=== PATIENT | female | born 2000 | race Caucasian/White ===

== ENCOUNTER 2021-12-20 01:39 | Emergency (ER) | payer OTHER ==
[~2021-12-20] VITALS: Ht 175 cm; Wt 53.0 kg
[2021-12-20 02:29] LABS: BILIRUBIN,URINE NEGATIVE (NEGATIVE); CLARITY,URINE CLEAR; COLOR,URINE YELLOW; GLUCOSE, URINE (UA) NEGATIVE (NEGATIVE); KETONES,URINE NEGATIVE (NEGATIVE); LEUKOCYTE ESTERASE ,URINE NEGATIVE (NEGATIVE); NITRITE,URINE NEGATIVE (NEGATIVE); PROTEIN,URINE NEGATIVE (NEGATIVE)
--- NOTE | 2021-12-20 02:30 | ED GU-Female ---
General Chief Complaint: Back Problems Stated Complaint: POSS KIDNEY INFECTION,FEVER Source: patient History of Present Illness Date Seen by Provider: Dec 20, 2021 Time Seen by Provider: 02:15 Initial Comments PT ARRIVES VIA POV--PT IS FROM [place], HERE VISITING HER BOYFRIEND C/O RIGHT > LEFT FLANK PAIN X 2 WEEKS, GETTING WORSE BEGAN HAVING SUBJECTIVE FEVER TONIGHT, AND TOOK 2 TYLENOL 1 HOUR AGO C/O NAUSEA, NO VOMITING PT WITH PERMANENT SUPRAPUBIC CATHETER SINCE SHE WAS A SMALL CHILD--HAD SURGERY FOR URACHAL CYST WITH INFECTION, WITH COMPLICATIONS AND THEN HAD A SMALL BOWEL RESECTION, APPENDECTOMY, PART OF BLADDER REMOVED AND PERMANENT SUPRAPUBIC CATHETER PLACED WELL PERMANENT FEEDING TUBE IN PLACE HAS FREQUENT UTI'S AND HAS HAD SEPSIS AT LEAST 6 TIMES DUE TO UTI'S PT HAS NOT SOUGHT CARE UNTIL TONIGHT LMP 1 MONTH AGO, ON OCP'S PT HAS MULTIPLE SPECIALISTS ALL AT [facility] IN [place] PT HAS HAD COVID-19 VACCINE X 2, NO BOOSTER WANTING PAIN MEDICATION AND NAUSEA MEDICATION ON ARRIVAL PER MED RECONCILIATION, PT IS ON A MULTITUDE OF MEDICATIONS, INCLUDING OXYCODONE, XANAX, AND A MULTITUDE OF MENTAL HEALTH MEDICATIONS. PT ALSO STATES SHE HAS A MEDICAL MARIJUANA CARD. PRESCRIPTIONS ARE FROM A MULTITUDE OF DIFFERENT PROVIDERS. PT WAS PRESCRIBED BACTRIM X 7 DAYS ON 11/20/21 AND MACROBID X 4 DAYS ON 11/27/21, AND FLAGYL 500 MG X 7 DAYS ON 12/13/21 PT FILLED RX FOR OXYCODONE #45 ON 12/07/21, AND FOR XANAX #60 ON 12/04/21 Allergies and Home Medications Allergies Coded Allergies: Iodinated Contrast Media (Verified Allergy, Unknown, 12/20/21) "THROAT SWELLING" NSAIDS (Non-Steroidal Anti-Inflamma (Verified Adverse Reaction, Unknown, 12/20/21) "ULCERS" Patient Home Medication List Home Medication List Reviewed: Yes Review of Systems Review of Systems Constitutional: see HPI, fever Respiratory: no symptoms reported Cardiovascular: no symptoms reported Gastrointestinal: see HPI, nausea; No vomiting; other (PERMANENT FEEDING TUBE IN PLACE, BUT DOES TAKE "BLAND FOOD" BY MOUTH) Genitourinary: see HPI, flank pain Musculoskeletal: see HPI, back pain Skin: no symptoms reported Psychiatric/Neurological: No Symptoms Reported Past Suiofdk-Yuanpl-Fycgmt Hx Patient Social History Tobacco Use?: No Substance use?: Yes Substance type: Marijuana Substance frequency: Daily Alcohol Use?: No Past Medical History Surgeries: Yes Abdominal, Appendectomy, Bladder Surgery, Bowel Surgery Respiratory: No Cardiac: No Neurological: No Genitourinary: Yes (URACHAL CYST; PARTIAL BLADDER REMOVAL; PERMANENT SUPRAPUBIC CATH) UTI-Chronic Gastrointestinal: Yes (BOWEL OBSTRUCTION/VOLVULUS WITH RESECTION + APPY) Obstructive Bowel Musculoskeletal: No Endocrine: No HEENT: No Cancer: No Psychosocial: No Integumentary: No Blood Disorders: No Family Medical History MULTIPLE EPISODES OF SEPSIS DUE TO UTI'S PAST SURGICAL HISTORY: -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 -PORT RIGHT CHEST Physical Exam Vital Signs Vital Signs - First Documented Capillary Refill : Height, Weight, BMI Height: '" Weight: lbs. oz. kg; BMI Method: General Appearance: WD/WN, no apparent distress, other (FULL HEAVY MAKEUP, GR EEN HAIR DYE; WALKS AND MOVES WITHOUT DIFFICULTY. DOES NOT APPEAR TO BE IN ANY DISCOMFORT OR DISTRESS. ) Neck: normal inspection Cardiovascular: regular rate, rhythm, no murmur Respiratory: normal breath sounds Gastrointestinal: soft, tenderness (RIGHT > LEFT FLANK), other (SUPRAPUBIC CATHETER AND G-TUBE IN PLACE, NO SIGNS OF INFECTION OR LEAKING. ) Back: CVA tenderness (R), CVA tenderness (L) Extremities: normal inspection Neurologic/Psychiatric: no motor/sensory deficits, alert, normal mood/affect Skin: normal color, warm/dry Focused Exam Lactate Level 12/20/21 02:45: Lactic Acid Level 3.49*H Lactic Acid Level Laboratory Tests Test 12/20/21 02:45 Lactic Acid Level 3.49 MMOL/L (0.50-2.00) *H Progress/Results/Core Measures Suspected Sepsis SIRS Temperature: Pulse: Respiratory Rate: Laboratory Tests 12/20/21 02:45: White Blood Count 10.3 Blood Pressure / Mean: 12/20/21 02:45: Lactic Acid Level 3.49*H Laboratory Tests 12/20/21 02:45: Creatinine 0.74, Platelet Count 282, Total Bilirubin 0.1 Results/Orders Lab Results Laboratory Tests Test 12/20/21 02:23 12/20/21 02:45 12/20/21 03:14 Range/Units Urine Color YELLOW Urine Clarity CLEAR Urine pH 6.0 5-9 Urine Specific [place] 1.015 L 1.016-1.022 Urine Protein NEGATIVE NEGATIVE Urine Glucose (UA) NEGATIVE NEGATIVE Urine Ketones NEGATIVE NEGATIVE Urine Nitrite NEGATIVE NEGATIVE Urine Bilirubin NEGATIVE NEGATIVE Urine Urobilinogen 0.2 < = 1.0 MG/DL Urine Leukocyte Esterase NEGATIVE NEGATIVE Urine RBC (Auto) 1+ H NEGATIVE Urine RBC 2-5 H /HPF Urine WBC NONE /HPF Urine Squamous Epithelial Cells 0-2 /HPF Urine Crystals NONE /LPF Urine Bacteria NEGATIVE /HPF Urine Casts NONE /LPF Urine Mucus NEGATIVE /LPF Urine Culture Indicated CULTURE PENDING White Blood Count 10.3 4.3-11.0 10^3/uL Red Blood Count 4.37 3.80-5.11 10^6/uL Hemoglobin 12.7 11.5-16.0 g/dL Hematocrit 39 35-52 % Mean Corpuscular Volume 89 80-99 fL Mean Corpuscular Hemoglobin 29 25-34 pg Mean Corpuscular Hemoglobin Concent 33 32-36 g/dL Red Cell Distribution Width 13.6 10.0-14.5 % Platelet Count 282 130-400 10^3/uL Mean Platelet Volume 9.4 9.0-12.2 fL Immature Granulocyte % (Auto) 1 % Neutrophils (%) (Auto) 43 42-75 % Lymphocytes (%) (Auto) 46 H 12-44 % Monocytes (%) (Auto) 5 0-12 % Eosinophils (%) (Auto) 4 0-10 % Basophils (%) (Auto) 1 0-10 % Neutrophils # (Auto) 4.5 1.8-7.8 10^3/uL Lymphocytes # (Auto) 4.7 H 1.0-4.0 10^3/uL Monocytes # (Auto) 0.5 0.0-1.0 10^3/uL Eosinophils # (Auto) 0.4 H 0.0-0.3 10^3/uL Basophils # (Auto) 0.1 0.0-0.1 10^3/uL Immature Granulocyte # (Auto) 0.1 0.0-0.1 10^3/uL Erythrocyte Sedimentation Rate 10 0-20 MM/HR Sodium Level 137 135-145 MMOL/L Potassium Level 3.3 L 3.6-5.0 MMOL/L Chloride Level 107 98-107 MMOL/L Carbon Dioxide Level 17 L 21-32 MMOL/L Anion Gap 13 5-14 MMOL/L Blood Urea Nitrogen 15 7-18 MG/DL Creatinine 0.74 0.60-1.30 MG/DL Estimat Glomerular Filtration Rate 117 BUN/Creatinine Ratio 20 Glucose Level 193 H 70-105 MG/DL Lactic Acid Level 3.49 *H 0.50-2.00 MMOL/L Calcium Level 8.9 8.5-10.1 MG/DL Corrected Calcium 9.1 8.5-10.1 MG/DL Total Bilirubin 0.1 0.1-1.0 MG/DL Aspartate Amino Transf (AST/SGOT) 14 5-34 U/L Alanine Aminotransferase (ALT/SGPT) 10 0-55 U/L Alkaline Phosphatase 27 L 40-136 U/L C-Reactive Protein High Sensitivity 0.15 0.00-0.50 MG/DL Total Protein 6.6 6.4-8.2 GM/DL Albumin 3.7 3.2-4.5 GM/DL Procalcitonin 0.01 <0.10 NG/ML Serum Test, Qualitative NEGATIVE NEGATIVE Urine Opiates Screen NEGATIVE NEGATIVE Urine Oxycodone Screen NEGATIVE NEGATIVE Urine Methadone Screen NEGATIVE NEGATIVE Urine Propoxyphene Screen NEGATIVE NEGATIVE Urine Barbiturates Screen NEGATIVE NEGATIVE Ur Tricyclic Antidepressants Screen NEGATIVE NEGATIVE Urine Phencyclidine Screen NEGATIVE NEGATIVE Urine Amphetamines Screen NEGATIVE NEGATIVE Urine Methamphetamines Screen NEGATIVE NEGATIVE Urine Benzodiazepines Screen POSITIVE H NEGATIVE Urine Cocaine Screen NEGATIVE NEGATIVE Urine Cannabinoids Screen POSITIVE H NEGATIVE My Orders Orders - ROM KIM DO Ed Iv/Invasive Line Start (12/20/21 02:16) Cbc With Automated Diff (12/20/21 02:16) Comprehensive Metabolic Panel (12/20/21 02:16) Hs C Reactive Protein (12/20/21 02:16) Hcg,Qualitative Serum (12/20/21 02:16) Lactic Acid Analyzer (12/20/21 02:16) Procalcitonin (Pct) (12/20/21 02:16) Ua Culture If Indicated (12/20/21 02:16) Erythrocyte Sedimentation Rate (12/20/21 02:16) Ed Iv/Invasive Line Start (12/20/21 02:16) Blood Culture (12/20/21 02:16) Urine Culture (12/20/21 02:16) Ed Iv/Invasive Line Start (12/20/21 02:16) Vital Signs Adult Sepsis Patie Q15M (12/20/21 02:16) Remove Rings In Anticipation O (12/20/21 02:16) Ct Abd/Pelvis Wo(Kidney Stone) (12/20/21 02:23) Chest 1 View, Ap/Pa Only (12/20/21 02:46) Ondansetron Injection (Zofran Injectio (12/20/21 03:00) Drug Screen Stat (Urine) (12/20/21 03:01) Ed Iv/Invasive Line Start (12/20/21 03:20) Ns Iv 1000 Ml (Sodium Chloride 0.9%) (12/20/21 03:30) Ed Iv/Invasive Line Start (12/20/21 04:13) Ns Iv 1000 Ml (Sodium Chloride 0.9%) (12/20/21 04:15) Medications Given in ED Current Medications Medications Dose Ordered Sig/Cheikh Route Start Time Stop Time Status Last Admin Dose Admin Ondansetron HCl 4 mg ONCE ONCE IVP 12/20/21 03:00 12/20/21 03:01 DC 12/20/21 02:57 4 MG Vital Signs/I&O 12/20/21 12/20/21 02:03 02:03 Temp 37.0 Pulse 81 Resp 16 B/P (MAP) 135/94 (108) Pulse Ox 97 O2 Delivery Room Air Room Air Capillary Refill : Progress Note : Progress Note GIVEN IV FLUIDS AND ZOFRAN WITH MUCH IMPROVEMENT IN NAUSEA NO FEVER VITALS STABLE PT SLEPT SOUNDLY FOR REMAINDER OF ER STAY NO COMPLAINTS AT DISMISSAL Diagnostic Imaging Comments CXR--NO ACUTE PROCESS, PENDING RADIOLOGIST REVIEW CT ABDOMEN/PELVIS--PER [facility] VIA FAX AT 0522: -NO ACUTE PROCESS, SUPRAPUBIC AND G-TUBE IN PLACE. Reviewed: Reviewed by Me Departure Impression Primary Impression: Flank pain Additional Impressions: Nausea Hyperglycemia Disposition: HOME, SELF-CARE Condition: Improved Departure-Patient Inst. Decision time for Depature: 05:23 Referrals: NO,LOCAL PHYSICIAN (PCP/Family) Primary Care Physician Patient Instructions: Flank Pain ED Add. Discharge Instructions: CONTINUE YOUR REGULAR MEDICATIONS PRESCRIBED FOLLOW UP WITH YOUR REGULAR DR THIS WEEK FOR FURTHER CARE All discharge instructions reviewed with patient and/or family. Voiced understanding. Scripts Ondansetron (Ondansetron Odt) 4 Mg Tab.rapdis 4 MG PO Q4H for Nausea/Vomiting, #10 TAB Prov: ROM KIM DO 12/20/21 ROM KIM DO Dec 20, 2021 02:30
[2021-12-20 02:43] LABS: BACTERIA,URINE NEGATIVE /HPF; SQUAMOUS EPITHELIAL CELL,UR 0-2 /HPF
[2021-12-20 02:54] LABS: BASOPHILS # (AUTO) 0.1 10^3/uL (0.0-0.1); BASOPHILS % (AUTO) 1 % (0-10); EOSINOPHILS # (AUTO) 0.4 10^3/uL (0.0-0.3); EOSINOPHILS % (AUTO) 4 % (0-10); HEMATOCRIT 39 % (35-52); HEMOGLOBIN 12.7 g/dL (11.5-16.0); LYMPHOCYTES # (AUTO) 4.7 10^3/uL (1.0-4.0); LYMPHOCYTES % (AUTO) 46 % (12-44); MEAN CORPUSCULAR HEMOGLOBIN 29 pg (25-34); MEAN CORPUSCULAR HGB CONC 33 g/dL (32-36); MEAN CORPUSCULAR VOLUME 89 fL (80-99); MEAN PLATELET VOLUME 9.4 fL (9.0-12.2); MONOCYTES # (AUTO) 0.5 10^3/uL (0.0-1.0); MONOCYTES % (AUTO) 5 % (0-12); NEUTROPHILS # (AUTO) 4.5 10^3/uL (1.8-7.8); NEUTROPHILS % (AUTO) 43 % (42-75); PLATELET COUNT 282 10^3/uL (130-400); WHITE BLOOD COUNT 10.3 10^3/uL (4.3-11.0)
[2021-12-20] MEDS ORDERED: ONDANSETRON 4 MG/2 ML (SDV) Z0FRAN IVP ONE (03:00)
[2021-12-20 03:02] LABS: ALBUMIN 3.7 GM/DL (3.2-4.5)
[2021-12-20 03:03] LABS: POTASSIUM 3.3 MMOL/L (3.6-5.0)
[2021-12-20 03:04] LABS: CALCIUM 8.9 MG/DL (8.5-10.1)
[2021-12-20 03:05] LABS: TOTAL PROTEIN 6.6 GM/DL (6.4-8.2)
[2021-12-20 03:07] LABS: BILIRUBIN,TOTAL 0.1 MG/DL (0.1-1.0)
[2021-12-20 03:09] LABS: CREATININE SERUM 0.74 MG/DL (0.60-1.30)
[2021-12-20 03:14] LABS: ERYTHROCYTE SEDIMENTATION RATE 10 MM/HR (0-20)
[2021-12-20] MEDS ORDERED: NS IV 1000 ML 1,000 ML IV SCH ×2 (03:30→04:15)
[2021-12-20 03:32] LABS: AMPHETAMINE SCREEN, URINE NEGATIVE (NEGATIVE); BARBITURATE SCREEN URINE NEGATIVE (NEGATIVE); BENZODIAZEPINES SCREEN URINE POSITIVE (NEGATIVE); CANNABINOID SCREEN, URINE POSITIVE (NEGATIVE); COCAINE SCREEN URINE NEGATIVE (NEGATIVE); METHADONE STAT NEGATIVE (NEGATIVE); METHAMPHETAMINE SCREEN URINE S NEGATIVE (NEGATIVE); OPIATE SCREEN URINE NEGATIVE (NEGATIVE); OXYCODONE STAT NEGATIVE (NEGATIVE); PROPOXYPHENE STAT NEGATIVE (NEGATIVE); TRICYCLIC ANTIDEPRESSANTS SCRE NEGATIVE (NEGATIVE)
[2021-12-20] MEDS ORDERED: ONDA4TAB11 PO (05:28)
[2021-12-20 05:32] VITALS: BP 105/60
--- NOTE | 2021-12-20 06:14 | Diagnostic Imaging Report ---
INDICATION: Febrile. Shortness of breath with cough. FINDINGS: Port-A-Cath present on the right, tip at the cavoatrial junction. The lungs are well-aerated and clear. There is no pneumothorax or pleural effusion. No bony abnormalities. IMPRESSION: Normal portable chest. Dictated by: Dictated on workstation # [id number]
--- NOTE | 2021-12-20 06:18 | Diagnostic Imaging Report ---
INDICATION: Flank pain. TECHNIQUE: Multiple contiguous axial images were obtained through the abdomen and pelvis without the use of intravenous contrast. Auto Exposure Controls were utilized during the CT exam to meet ALARA standards for radiation dose reduction. There is no prior CT for comparison. Visualized portions of the lung bases were clear, except for some minimal atelectatic change in the right base. There is no free intraperitoneal air. The liver and gallbladder appear unremarkable. Spleen, adrenals, and pancreas are normal. The kidneys bilaterally show no radiopaque stone or hydronephrosis. There is no retroperitoneal mass or adenopathy. There is no ascites or abnormal fluid collection. Visualized bowel loops show no obstruction or focal bowel wall thickening. There is a surgical anastomosis in the pelvis. There is a suprapubic catheter in place and the bladder is decompressed. There is a GJ tube in place with tip overlying the proximal jejunum. Neurostimulator device is seen with tip overlying the presacral region. IMPRESSION: No evidence of urinary tract stone or hydronephrosis. No evidence of abscess or overt focal inflammatory process. Dictated by: Dictated on workstation # [id number]
== END 2021-12-20 05:36 | disposition home or self-care (01) ==
LOC: ER 01:49
DX: R73.9 Hyperglycemia, unspecified (principal)
CPT/HCPCS: 36415; 71045; 74176; 80053; 80306; 81000; 83605; 84145; 84703; 85025; 85652; 86141; 87040; 87077; 87088; 87186

== ENCOUNTER 2022-01-02 17:12 | Emergency (ER) | payer OTHER ==
[~2022-01-02] VITALS: Ht 175 cm; Wt 56.0 kg
[~2022-01-02 17:12] MED LIST: ONDA4TAB11 PO
[2022-01-02 17:20] VITALS: BP 147/97
--- NOTE | 2022-01-02 17:50 | ED GU-Female ---
General Chief Complaint: - Reproductive Stated Complaint: URINATING BLOOD, FEVER, BODY ACHES Nursing Triage Note: ARRIVED VIA AMB TO ROOM 05. PT THINKS SHE IS SEPSIS FROM HER SUPRAPUBIC. Source: patient Exam Limitations: no limitations History of Present Illness Date Seen by Provider: Jan 02, 2022 Time Seen by Provider: 17:48 Initial Comments To ER by private vehicle with concern of sepsis from urinary infection. She is having unmeasured fevers evidenced by shaking and sweats at night, general muscle aches and bladder spasms. She has a chronic indwelling suprapubic catheter, a GJ tube and a Groshong port. 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 She follows with infectious disease out of [facility]. She had a UTI within the past 2 weeks and on Saturday of this past week was given a 3 g dose of fosfomycin. She also reports a history of long QT syndrome. She also states that she is been having intermittent hematuria for the past few days but that is currently not present Timing/Duration: constant Severity/Quality: moderate Location: suprapubic Radiation: none Activities at Onset: none Prior Genitourinary Problems: similar symptoms Associated Symptoms: dysuria Allergies and Home Medications Allergies Coded Allergies: Iodinated Contrast Media (Verified Allergy, Unknown, 12/20/21) "THROAT SWELLING" NSAIDS (Non-Steroidal Anti-Inflamma (Verified Adverse Reaction, Unknown, 12/20/21) "ULCERS" Patient Home Medication List Home Medication List Reviewed: Yes Fosfomycin Tromethamine (Monurol) 3 Gm Pack, 3 GM PO q3 days Prescribed by: FADUMO SOTO on 01/02/221828 Ondansetron (Ondansetron Odt) 4 Mg Tab.rapdis, 4 MG PO Q4H Prescribed by: ROM KIM on 12/20/21 0562 Review of Systems Review of Systems Constitutional: see HPI, chills, diaphoresis EENTM: see HPI Respiratory: no symptoms reported Cardiovascular: no symptoms reported Genitourinary: see HPI, dysuria Musculoskeletal: no symptoms reported Skin: no symptoms reported Psychiatric/Neurological: No Symptoms Reported Endocrine: No Symptoms Reported Past Jakjkgh-Gbyfdx-Lgdbfz Hx Patient Social History Tobacco Use?: No Substance use?: Yes Additional substance use comme: MEDICAL MARIJUANA Immunizations Up To Date Second COVID19 Vaccination Yuri: UNKNOWN DATE COVID19 Vaccine Drilling Contractor: NANCYOfe Past Medical History Surgeries: Yes Abdominal, Appendectomy, Bladder Surgery, Bowel Surgery Respiratory: No Cardiac: No Neurological: No Last Menstrual Period: Dec 12, 2021 Genitourinary: Yes (URACHAL CYST; PARTIAL BLADDER REMOVAL; PERMANENT SUPRAPUBIC CATH) UTI-Chronic Gastrointestinal: Yes (BOWEL OBSTRUCTION/VOLVULUS WITH RESECTION + APPY) Obstructive Bowel Musculoskeletal: No Endocrine: No HEENT: No Cancer: No Psychosocial: No Integumentary: No Blood Disorders: No Family Medical History MULTIPLE EPISODES OF SEPSIS DUE TO UTI'S PAST SURGICAL HISTORY: -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 -PORT RIGHT CHEST Physical Exam Vital Signs Vital Signs - First Documented 01/02/22 17:20 Temp 36.8 Pulse 71 Resp 16 B/P (MAP) 147/97 (114) Pulse Ox 99 O2 Delivery Room Air Capillary Refill : Less Than 3 Seconds Height, Weight, BMI Height: '" Weight: lbs. oz. kg; 18.00 BMI Method: General Appearance: WD/WN, no apparent distress, other (She is afebrile for us. Normal vital signs. Pleasant, alert and oriented. Well-versed in her healthcare/history. ) HEENT: PERRL/EOMI, normal ENT inspection Neck: non-tender, full range of motion Cardiovascular: regular rate, rhythm, no murmur Respiratory: normal breath sounds, no respiratory distress, no accessory muscle use Gastrointestinal: normal bowel sounds, soft Neurologic/Psychiatric: alert, normal mood/affect, oriented x 3 Skin: normal color, warm/dry Focused Exam Lactate Level 01/02/22 17:40: Lactic Acid Level 1.28 Lactic Acid Level Laboratory Tests Test 01/02/22 17:40 Lactic Acid Level 1.28 MMOL/L (0.50-2.00) Progress/Results/Core Measures Suspected Sepsis SIRS Temperature: Pulse: 71 Respiratory Rate: 16 Laboratory Tests 01/02/22 17:40: White Blood Count 9.7 Blood Pressure 147 /97 Mean: 114 01/02/22 17:40: Lactic Acid Level 1.28 Laboratory Tests 01/02/22 17:40: Creatinine 0.79, INR Comment 0.9, Platelet Count 343, Total Bilirubin 0.1 Results/Orders Lab Results Laboratory Tests Test 01/02/22 17:40 01/02/22 17:47 Range/Units White Blood Count 9.7 4.3-11.0 10^3/uL Red Blood Count 4.43 3.80-5.11 10^6/uL Hemoglobin 12.9 11.5-16.0 g/dL Hematocrit 39 35-52 % Mean Corpuscular Volume 88 80-99 fL Mean Corpuscular Hemoglobin 29 25-34 pg Mean Corpuscular Hemoglobin Concent 33 32-36 g/dL Red Cell Distribution Width 13.2 10.0-14.5 % Platelet Count 343 130-400 10^3/uL Mean Platelet Volume 10.1 9.0-12.2 fL Immature Granulocyte % (Auto) 1 % Neutrophils (%) (Auto) 49 42-75 % Lymphocytes (%) (Auto) 40 12-44 % Monocytes (%) (Auto) 7 0-12 % Eosinophils (%) (Auto) 3 0-10 % Basophils (%) (Auto) 0 0-10 % Neutrophils # (Auto) 4.7 1.8-7.8 X 10^3 Lymphocytes # (Auto) 3.9 1.0-4.0 X 10^3 Monocytes # (Auto) 0.7 0.0-1.0 X 10^3 Eosinophils # (Auto) 0.3 0.0-0.3 10^3/uL Basophils # (Auto) 0.0 0.0-0.1 10^3/uL Immature Granulocyte # (Auto) 0.1 0.0-0.1 10^3/uL Prothrombin Time 12.6 12.2-14.7 SEC INR Comment 0.9 0.8-1.4 Activated Partial Thromboplast Time 30 24-35 SEC Sodium Level 138 135-145 MMOL/L Potassium Level 3.8 3.6-5.0 MMOL/L Chloride Level 107 98-107 MMOL/L Carbon Dioxide Level 20 L 21-32 MMOL/L Anion Gap 11 5-14 MMOL/L Blood Urea Nitrogen 14 7-18 MG/DL Creatinine 0.79 0.60-1.30 MG/DL Estimat Glomerular Filtration Rate 108 BUN/Creatinine Ratio 18 Glucose Level 90 70-105 MG/DL Lactic Acid Level 1.28 0.50-2.00 MMOL/L Calcium Level 9.5 8.5-10.1 MG/DL Corrected Calcium 9.5 8.5-10.1 MG/DL Total Bilirubin 0.1 0.1-1.0 MG/DL Aspartate Amino Transf (AST/SGOT) 15 5-34 U/L Alanine Aminotransferase (ALT/SGPT) 16 0-55 U/L Alkaline Phosphatase 30 L 40-136 U/L Total Protein 7.7 6.4-8.2 GM/DL Albumin 4.0 3.2-4.5 GM/DL Urine Color YELLOW Urine Clarity CLEAR Urine pH 8.0 5-9 Urine Specific [place] 1.015 L 1.016-1.022 Urine Protein NEGATIVE NEGATIVE Urine Glucose (UA) NEGATIVE NEGATIVE Urine Ketones NEGATIVE NEGATIVE Urine Nitrite NEGATIVE NEGATIVE Urine Bilirubin NEGATIVE NEGATIVE Urine Urobilinogen 0.2 < = 1.0 MG/DL Urine Leukocyte Esterase 2+ H NEGATIVE Urine RBC (Auto) TRACE-I H NEGATIVE Urine RBC 0-2 /HPF Urine WBC 5-10 H /HPF Urine Crystals NONE /LPF Urine Bacteria TRACE /HPF Urine Casts NONE /LPF Urine Mucus NEGATIVE /LPF Urine Culture Indicated CULTURE PENDING Urine Opiates Screen NEGATIVE NEGATIVE Urine Oxycodone Screen NEGATIVE NEGATIVE Urine Methadone Screen NEGATIVE NEGATIVE Urine Propoxyphene Screen NEGATIVE NEGATIVE Urine Barbiturates Screen NEGATIVE NEGATIVE Ur Tricyclic Antidepressants Screen NEGATIVE NEGATIVE Urine Phencyclidine Screen NEGATIVE NEGATIVE Urine Amphetamines Screen NEGATIVE NEGATIVE Urine Methamphetamines Screen NEGATIVE NEGATIVE Urine Benzodiazepines Screen POSITIVE H NEGATIVE Urine Cocaine Screen NEGATIVE NEGATIVE Urine Cannabinoids Screen POSITIVE H NEGATIVE Influenza Type A Antigen NEGATIVE NEGATIVE Influenza Type B Antigen NEGATIVE NEGATIVE My Orders Orders - FADUMO SOOT CREDIT CASHIER Cbc With Automated Diff (01/02/22 17:36) Comprehensive Metabolic Panel (01/02/22 17:36) Blood Culture (01/02/22 17:36) Sputum Culture (01/02/22 17:36) Urinalysis (01/02/22 17:36) Urine Culture (01/02/22 17:36) Protime With Inr (01/02/22 17:36) Partial Thromboplastin Time (01/02/22 17:36) Ed Iv/Invasive Line Start (01/02/22 17:36) Ed Iv/Invasive Line Start (01/02/22 17:36) Vital Signs Adult Sepsis Patie Q15M (01/02/22 17:36) O2 (01/02/22 17:36) Remove Rings In Anticipation O (01/02/22 17:36) Lactic Acid Analyzer (01/02/22 17:36) Fentanyl Inj (Sublimaze Injection) (01/02/22 18:00) Promethazine Injection (Phenergan Injec (01/02/22 18:00) Drug Screen Stat (Urine) (01/02/22 17:54) Influenza A & B Antigens (01/02/22 17:47) Cefepime Injection (Maxipime Injection) (01/02/22 18:45) Medications Given in ED Current Medications Medications Dose Ordered Sig/Cheikh Route Start Time Stop Time Status Last Admin Dose Admin Cefepime HCl 1000 mg/Sodium Chloride 50 ml @ 100 mls/hr ONCE ONCE IV 01/02/22 18:45 01/02/22 19:14 DC 01/02/22 18:46 100 MLS/HR Fentanyl Citrate 50 mcg ONCE ONCE IVP 01/02/22 18:00 01/02/22 18:01 DC 01/02/22 17:57 50 MCG Promethazine HCl 25 mg ONCE ONCE IVP 01/02/22 18:00 01/02/22 18:01 DC 01/02/22 18:01 25 MG Vital Signs/I&O 01/02/22 17:20 Temp 36.8 Pulse 71 Resp 16 B/P (MAP) 147/97 (114) Pulse Ox 99 O2 Delivery Room Air Capillary Refill : Less Than 3 Seconds Blood Pressure Mean: 114 Departure Communication (Admissions) 1833-discussed the UTI with her and she states that she normally has to get cefepime through an IV for this. Discussed with her we could do a dose of that before I send her home on 3 more doses of fosfomycin every 3 days. She is also worried that she was going to be unable to control her pain at home. I asked what she takes for pain and she states "Tylenol". Her K tracks has an incredibly high score of 930 showing multiple doses of oxycodone 10/325 as well as Xanax 2 mg tablets. Review of [facility] records indicate that she called them on 12/07/2021 reporting that her oxycodone had been stolen and that she needed some more. When asked why she is not taking it (as evidenced by a negative drug screen today) she states that she does not like it because "it makes me feel weak for getting into my pain". 1855-she now states that she does not feel comfortable going home, she is worried that she will get worse. Discussed with her that I will call her infectious disease specialist to run it by them. I did discuss with her that continuing to fill her oxycodone but then not taking it is a bit of a red flag given that is a controlled substance and this can be concerning for opioid diversion. 1906-I am awaiting a callback from [facility] infectious disease. She is without tachycardia leukocytosis fever hypotension or any other concerning findings. Ill discuss with infectious disease and follow any recommendations they may have. 2010- [facility] has called back to report that they are only on-call from infectious disease standpoint for their own clinic patients. Impression Primary Impression: Urinary tract infection Disposition: HOME, SELF-CARE Condition: Stable Departure-Patient Inst. Decision time for Depature: 18:24 Referrals: NO,LOCAL PHYSICIAN (PCP/Family) Primary Care Physician Patient Instructions: Urinary Tract Infection, Adult (DC) Add. Discharge Instructions: Take your oxycodone to help control your pain.. Take the fosfomycin 3 g dose every 3 days for 3 more doses. Follow-up with your infectious disease specialist for further guidance. You are not septic today. All discharge instructions reviewed with patient and/or family. Voiced understanding. Scripts Fosfomycin Tromethamine (Monurol) 3 Gm Pack 3 GM PO q3 days, #3 EA MIX WITH 4 OUNCES OF COLD WATER every 3 days for 3 doses Prov: FADUMO SOTO CREDIT CASHIER 01/02/22 FADUMO SOTO CREDIT CASHIER Jan 02, 2022 17:50
[2022-01-02 17:58] LABS: BASOPHILS % (AUTO) 0 % (0-10); EOSINOPHILS # (AUTO) 0.3 10^3/uL (0.0-0.3); EOSINOPHILS % (AUTO) 3 % (0-10); HEMATOCRIT 39 % (35-52); HEMOGLOBIN 12.9 g/dL (11.5-16.0); LYMPHOCYTES # (AUTO) 3.9 X 10^3 (1.0-4.0); LYMPHOCYTES % (AUTO) 40 % (12-44); MEAN CORPUSCULAR HEMOGLOBIN 29 pg (25-34); MEAN CORPUSCULAR HGB CONC 33 g/dL (32-36); MEAN CORPUSCULAR VOLUME 88 fL (80-99); MEAN PLATELET VOLUME 10.1 fL (9.0-12.2); MONOCYTES # (AUTO) 0.7 X 10^3 (0.0-1.0); MONOCYTES % (AUTO) 7 % (0-12); NEUTROPHILS # (AUTO) 4.7 X 10^3 (1.8-7.8); NEUTROPHILS % (AUTO) 49 % (42-75); PLATELET COUNT 343 10^3/uL (130-400); WHITE BLOOD COUNT 9.7 10^3/uL (4.3-11.0)
[2022-01-02 17:58] LABS: BILIRUBIN,URINE NEGATIVE (NEGATIVE); CLARITY,URINE CLEAR; COLOR,URINE YELLOW; GLUCOSE, URINE (UA) NEGATIVE (NEGATIVE); KETONES,URINE NEGATIVE (NEGATIVE); LEUKOCYTE ESTERASE ,URINE 2+ (NEGATIVE); NITRITE,URINE NEGATIVE (NEGATIVE); PROTEIN,URINE NEGATIVE (NEGATIVE)
[2022-01-02] MEDS ORDERED: fentaNYL INJ 100 MCG/2 ML AMP IVP ONE (18:00)
[2022-01-02] MEDS ORDERED: PROMETHAZINE INJ 25 MG/ML (PHENERGAN) AMP IVP ONE (18:00)
[2022-01-02 18:08] LABS: BACTERIA,URINE TRACE /HPF; RBC,URINE 0-2 /HPF
[2022-01-02 18:08] LABS: POTASSIUM 3.8 MMOL/L (3.6-5.0)
[2022-01-02 18:09] LABS: CALCIUM 9.5 MG/DL (8.5-10.1)
[2022-01-02 18:10] LABS: TOTAL PROTEIN 7.7 GM/DL (6.4-8.2)
[2022-01-02 18:12] LABS: BILIRUBIN,TOTAL 0.1 MG/DL (0.1-1.0)
[2022-01-02 18:14] LABS: CREATININE SERUM 0.79 MG/DL (0.60-1.30); INR 0.9 (0.8-1.4); PROTHROMBIN TIME PATIENT 12.6 SEC (12.2-14.7)
[2022-01-02 18:16] LABS: AMPHETAMINE SCREEN, URINE NEGATIVE (NEGATIVE); BARBITURATE SCREEN URINE NEGATIVE (NEGATIVE); BENZODIAZEPINES SCREEN URINE POSITIVE (NEGATIVE); CANNABINOID SCREEN, URINE POSITIVE (NEGATIVE); COCAINE SCREEN URINE NEGATIVE (NEGATIVE); METHADONE STAT NEGATIVE (NEGATIVE); METHAMPHETAMINE SCREEN URINE S NEGATIVE (NEGATIVE); OPIATE SCREEN URINE NEGATIVE (NEGATIVE); OXYCODONE STAT NEGATIVE (NEGATIVE); PROPOXYPHENE STAT NEGATIVE (NEGATIVE); TRICYCLIC ANTIDEPRESSANTS SCRE NEGATIVE (NEGATIVE)
[2022-01-02] MEDS ORDERED: NF-FOSFPKT PO (18:29)
[2022-01-02] MEDS ORDERED: CEFEPIME INJECTION 1,000 MG in NS (IVPB) 50 ML IV ONE (18:45)
[2022-01-03] MEDS ORDERED: ONDA4TAB11 PO (22:25)
[2022-01-03] MEDS ORDERED: DICY20TA PO (22:25)
[2022-01-03] MEDS ORDERED: PANT40TA2 PO (22:26)
== END 2022-01-02 20:20 | disposition home or self-care (01) ==
LOC: EDUNIT# 17:12 → ER 17:15
DX: N39.0 Urinary tract infection, site not specified (principal); Z96.0 Presence of urogenital implants
CPT/HCPCS: 36415; 80053; 80306; 81000; 83605; 85025; 85610; 85730; 87040; 87077; 87088; 87804

== ENCOUNTER 2022-01-03 19:27 | Emergency (ER) | payer OTHER ==
[~2022-01-03] VITALS: Ht 175.2 cm; Wt 56.7 kg
[~2022-01-03 19:27] MED LIST changes: +NF-FOSFPKT PO
--- NOTE | 2022-01-03 20:12 | ED Abdominal Pain ---
General Chief Complaint: Abdominal/GI Problems Stated Complaint: SIDE PAIN, DIARRHEA Source of Information: Patient (DIFFICULT HISTORIAN--GIVES INCONSISTENT AND CONVOLUTED INFORMATION), Old Records History of Present Illness Date Seen by Provider: Jan 03, 2022 Time Seen by Provider: 19:54 Initial Comments PT ARRIVES VIA POV--BOYFRIEND BROUGHT HER PT IS FROM [place], [place], AND STATES SHE IS HERE VISITING HER BOYFRIEND. THIS IS PT'S 3RD VISIT HERE SINCE 12/20/21 PT WAS IN ER LAST EVENING FOR SIMILAR COMPLAINT PT STATES SHE WENT TO [facility] BECAUSE SHE THINKS SHE MIGHT HAVE C- DIFFICILE, BUT COULD NOT GIVE THEM A STOOL SPECIMEN PT C/O ABDOMINAL PAIN ( CHRONIC PROBLEM ) STATES SHE HAS "PAIN IN MY INTESTINES WHERE MY BOWEL RESECTION SCAR IS" AND ALSO C/O PAIN IN LEFT UPPER QUADRANT PT STATES "I HAVEN'T HAD PAIN LIKE THIS SINCE I HAD PANCREATITIS" --PT UNABLE TO STATE HOW LONG AGO THAT WAS STATES SHE HAS BEEN HAVING PAIN FOR OVER A WEEK NO FEVER + NAUSEA, VOMITED X 3 STATES SHE HAS HAD 7 BM'S TODAY AND WOKE UP AT 11:00 AM TODAY AND HAD HAD A BOWEL MOVEMENT IN THE BED NO FEVER PT WITH EXTENSIVE MEDICAL HISTORY AND HAS A PERMANENT SUPRAPUBIC CATHETER IN PLACE. PT ALSO HAS CHRONIC PAIN COMPLAINTS--STATES SHE TOOK 1 OXYCODONE TODAY ABOUT 6 HOURS AGO STATES SHE TOOK 1 ZOFRAN TODAY AT 11:00 WHEN SHE WOKE UP HAS NOT TAKEN ANYTHING ELSE FOR SYMPTOMS PT WANTING PAIN MEDICATION AND NAUSEA MEDICATION SOON SHE ARRIVES. WHEN SEEN IN ER LAST PM, SHE WAS DX WITH UTI AND GIVEN A DOSE OF CEFEPIME AND RX FOR FOSFOMYCIN PT WAS SEEN HERE 12/20/21 FOR FLANK PAIN, URINE CULTURED OUT PSEUDOMONAS, ALVARADO- SENSITIVE. SEE THOSE CHARTS FOR DETAILS. PT HAS NOT ATTEMPTED TO FOLLOW UP WITH ANY OF HER REGULAR PHYSICIANS AT [facility] AT ANY TIME. ONLY HAD RX'S CALLED IN TO [facility] HERE IN [place]. HAS MULTIPLE PROVIDERS AT [facility] IN [place]. Allergies and Home Medications Allergies Coded Allergies: Iodinated Contrast Media (Verified Allergy, Unknown, 12/20/21) "THROAT SWELLING" NSAIDS (Non-Steroidal Anti-Inflamma (Verified Adverse Reaction, Unknown, 12/20/21) "ULCERS" Patient Home Medication List Dicyclomine HCl (Dicyclomine HCl) 20 Mg Tablet, 20 MG PO Q6H Prescribed by: ROM KIM on 01/03/222224 Fosfomycin Tromethamine (Monurol) 3 Gm Pack, 3 GM PO q3 days Prescribed by: FADUMO SOTO on 01/02/221828 Ondansetron (Ondansetron Odt) 4 Mg Tab.rapdis, 4 MG PO Q4H Prescribed by: ROM KIM on 12/20/21 05 Ondansetron (Ondansetron Odt) 4 Mg Tab.rapdis, 4 MG PO Q4H Prescribed by: ROM KIM on 01/03/222224 Pantoprazole Sodium (Protonix) 40 Mg Tablet.dr, 40 MG PO DAILY Prescribed by: ROM KIM on 01/03/222225 Review of Systems Review of Systems Constitutional: no symptoms reported; No fever Respiratory: No Symptoms Reported Cardiovascular: No Symptoms Reported Gastrointestinal: See HPI, Abdominal Pain, Diarrhea, Nausea, Vomiting Genitourinary: See HPI Musculoskeletal: no symptoms reported; No back pain Skin: no symptoms reported Psychiatric/Neurological: No Symptoms Reported Endocrine: No Symptoms Reported Hematologic/Lymphatic: No Symptoms Reported Past Umihgyq-Fxebpe-Gwiqzg Hx Patient Social History Tobacco Use?: No Substance use?: Yes Substance type: Marijuana Substance frequency: Daily Immunizations Up To Date Second COVID19 Vaccination Yuri: UNKNOWN DATE Past Medical History Surgeries: Yes Abdominal, Appendectomy, Bladder Surgery, Bowel Surgery Respiratory: No Cardiac: No Neurological: No Genitourinary: Yes (URACHAL CYST; PARTIAL BLADDER REMOVAL; PERMANENT SUPRAPUBIC CATH) UTI-Chronic Gastrointestinal: Yes (BOWEL OBSTRUCTION/VOLVULUS WITH RESECTION + APPY;PERMANENT FEEDING TUBE) Obstructive Bowel Musculoskeletal: No Endocrine: No HEENT: No Cancer: No Psychosocial: Yes (EXTENSIVE PSYCH ISSUES/MULTITUDE OF PSYCH DIAGNOSES) Anxiety, PTSD, Suicide Attempts, Bipolar, Depression Integumentary: No Blood Disorders: No Family Medical History MULTIPLE EPISODES OF SEPSIS DUE TO UTI'S, PER PT PAST SURGICAL HISTORY: -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 -PORT RIGHT CHEST Physical Exam Vital Signs Vital Signs - First Documented 01/03/22 19:55 Temp 36.2 Pulse 82 Resp 20 B/P (MAP) 137/108 (118) Pulse Ox 100 Capillary Refill : Height/Weight/BMI Height: '" Weight: lbs. oz. kg; 18.00 BMI Method: General Appearance: WD/WN, no apparent distress, thin, other (SITTING BENINESE- STYLE FOR MOST OF ER STAY. DOES NOT APPEAR ILL OR TO BE IN ANY DISCOMFORT OR DISTRESS. WALKS UPRIGHT AND MOVES QUICKLY WITHOUT DIFFICULTY WHILE IN ER. ) HEENT: PERRL/EOMI, other (ORAL MUCOSA MOIST) Neck: normal inspection Respiratory: normal breath sounds, no respiratory distress, no accessory muscle use Cardiovascular: regular rate, rhythm, no murmur Gastrointestinal: normal bowel sounds, soft, no organomegaly, no pulsatile mass; No distended, No guarding, No rebound; tenderness (MILD DIFFUSE TEND ERNESS. ); No hernia, No mass; other (FEEDING TUBE IN PLACE IN UPPER ABDOMEN AND SUPRAPUBIC CATHETER IN PLACE. NO SIGNS OF INFECTION TO THESE SITES, BUT DOES NOT HAVE DRESSINGS ON THEM AND PT HAS DRIED MATERIAL AROUND SITES--POOR HYGIENE OF THESE AREAS. NO SIGNS OF INFECTION OR LEAKING FROM THESE SITES. 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, no motor/sensory deficits, alert, oriented x 3 Skin: normal color, warm/dry; No rash Focused Exam Lactate Level 01/03/22 20:31: Lactic Acid Level 1.02 Lactic Acid Level Laboratory Tests Test 01/03/22 20:31 Lactic Acid Level 1.02 MMOL/L (0.50-2.00) Progress/Results/Core Measures Results/Orders Lab Results Laboratory Tests Test 01/03/22 20:04 01/03/22 20:31 Range/Units Urine Color YELLOW Urine Clarity CLEAR Urine pH 6.0 5-9 Urine Specific [place] 1.020 1.016-1.022 Urine Protein NEGATIVE NEGATIVE Urine Glucose (UA) NEGATIVE NEGATIVE Urine Ketones NEGATIVE NEGATIVE Urine Nitrite NEGATIVE NEGATIVE Urine Bilirubin NEGATIVE NEGATIVE Urine Urobilinogen 0.2 < = 1.0 MG/DL Urine Leukocyte Esterase TRACE H NEGATIVE Urine RBC (Auto) 1+ H NEGATIVE Urine RBC 0-2 /HPF Urine WBC 0-2 /HPF Urine Squamous Epithelial Cells NONE /HPF Urine Renal Epithelial Cells NONE /HPF Urine Crystals NONE /LPF Urine Bacteria NEGATIVE /HPF Urine Casts NONE /LPF Urine Mucus NEGATIVE /LPF Urine Culture Indicated NO Urine Opiates Screen NEGATIVE NEGATIVE Urine Oxycodone Screen NEGATIVE NEGATIVE Urine Methadone Screen NEGATIVE NEGATIVE Urine Propoxyphene Screen NEGATIVE NEGATIVE Urine Barbiturates Screen NEGATIVE NEGATIVE Ur Tricyclic Antidepressants Screen NEGATIVE NEGATIVE Urine Phencyclidine Screen NEGATIVE NEGATIVE Urine Amphetamines Screen NEGATIVE NEGATIVE Urine Methamphetamines Screen NEGATIVE NEGATIVE Urine Benzodiazepines Screen POSITIVE H NEGATIVE Urine Cocaine Screen NEGATIVE NEGATIVE Urine Cannabinoids Screen POSITIVE H NEGATIVE White Blood Count 12.2 H 4.3-11.0 10^3/uL Red Blood Count 4.79 3.80-5.11 10^6/uL Hemoglobin 13.7 11.5-16.0 g/dL Hematocrit 42 35-52 % Mean Corpuscular Volume 87 80-99 fL Mean Corpuscular Hemoglobin 29 25-34 pg Mean Corpuscular Hemoglobin Concent 33 32-36 g/dL Red Cell Distribution Width 13.0 10.0-14.5 % Platelet Count 330 130-400 10^3/uL Mean Platelet Volume 10.1 9.0-12.2 fL Immature Granulocyte % (Auto) 1 % Neutrophils (%) (Auto) 48 42-75 % Lymphocytes (%) (Auto) 42 12-44 % Monocytes (%) (Auto) 5 0-12 % Eosinophils (%) (Auto) 3 0-10 % Basophils (%) (Auto) 1 0-10 % Neutrophils # (Auto) 5.9 1.8-7.8 10^3/uL Lymphocytes # (Auto) 5.2 H 1.0-4.0 10^3/uL Monocytes # (Auto) 0.6 0.0-1.0 10^3/uL Eosinophils # (Auto) 0.4 H 0.0-0.3 10^3/uL Basophils # (Auto) 0.1 0.0-0.1 10^3/uL Immature Granulocyte # (Auto) 0.1 0.0-0.1 10^3/uL Percent Immature Platelet Fraction 2.3 0.0-7.6 % Erythrocyte Sedimentation Rate 15 0-20 MM/HR Prothrombin Time 13.1 12.2-14.7 SEC INR Comment 1.0 0.8-1.4 Activated Partial Thromboplast Time 24 24-35 SEC Sodium Level 136 135-145 MMOL/L Potassium Level 3.6 3.6-5.0 MMOL/L Chloride Level 104 98-107 MMOL/L Carbon Dioxide Level 18 L 21-32 MMOL/L Anion Gap 14 5-14 MMOL/L Blood Urea Nitrogen 15 7-18 MG/DL Creatinine 0.70 0.60-1.30 MG/DL Estimat Glomerular Filtration Rate 125 BUN/Creatinine Ratio 21 Glucose Level 84 70-105 MG/DL Lactic Acid Level 1.02 0.50-2.00 MMOL/L Calcium Level 10.1 8.5-10.1 MG/DL Corrected Calcium 9.9 8.5-10.1 MG/DL Magnesium Level 1.7 1.6-2.4 MG/DL Total Bilirubin 0.3 0.1-1.0 MG/DL Aspartate Amino Transf (AST/SGOT) 16 5-34 U/L Alanine Aminotransferase (ALT/SGPT) 16 0-55 U/L Alkaline Phosphatase 34 L 40-136 U/L Myoglobin 17.2 10.0-92.0 NG/ML C-Reactive Protein High Sensitivity 0.19 0.00-0.50 MG/DL Total Protein 8.1 6.4-8.2 GM/DL Albumin 4.3 3.2-4.5 GM/DL Amylase Level 88 25-125 U/L Lipase 21 8-78 U/L Serum Test, Qualitative NEGATIVE NEGATIVE Acetaminophen Level < 10 L 10-30 UG/ML Serum Alcohol < 10 <10 MG/DL My Orders Orders - ROM KIM DO Ed Iv/Invasive Line Start (01/03/22 20:01) Monitor-Rhythm Ecg Trace Only (01/03/22 20:) Acetaminophen (01/03/22 20:01) Alcohol (01/03/22 20:01) Amylase (01/03/22 20:01) Cbc With Automated Diff (01/03/22 20:) Comprehensive Metabolic Panel (01/03/22 20:) Hs C Reactive Protein (01/03/22 20:) Drug Screen Stat (Urine) (01/03/22 20:) Hcg,Qualitative Serum (01/03/22 20:) Lactic Acid Analyzer (01/03/22 20:) Lipase (01/03/22 20:) Magnesium (01/03/22 20:01) Protime With Inr (01/03/22 20:01) Partial Thromboplastin Time (01/03/22 20:01) Ua Culture If Indicated (01/03/22 20:01) Blood Culture (01/03/22 20:01) Erythrocyte Sedimentation Rate (01/03/22 20:01) Myoglobin Serum (01/03/22 20:01) Urine Culture (01/03/22 20:01) Vital Signs Adult Sepsis Patie Q15M (01/03/22 20:01) Remove Rings In Anticipation O (01/03/22 20:01) Ed Iv/Invasive Line Start (01/03/22 20:01) Lactated Ringers (Lr 1000 Ml Iv Solution (01/03/22 20:15) Ct Abdomen/Pelvis Wo (01/03/22 20:25) Medications Given in ED Current Medications Medications Dose Ordered Sig/Cheikh Route Start Time Stop Time Status Last Admin Dose Admin Lactated Ringer's 1,000 ml @ 0 mls/hr Q0M ONCE IV 01/03/22 20:15 01/03/22 20:16 DC 01/03/22 20:38 0 MLS/HR Vital Signs/I&O 01/03/22 01/03/22 19:55 22:35 Temp 36.2 Pulse 82 73 Resp 20 13 B/P (MAP) 137/108 (118) 109/74 Pulse Ox 100 99 01/04/22 00:00 Intake Total 1000 ml Balance 1000 ml Progress Progress Note : Progress Note VERY DRAMATIC ON ARRIVAL--BOYFRIEND "CARRYING" HER INTO ER FROM THE VEHICLE, AND PT ESSENTIALLY LAYING ACROSS THE REGISTRATION DESK, BUT PT ABLE TO WALK UPRIGHT AND MOVE WITHOUT DIFFICULTY ON HER OWN BACK INTO THE ROOM. GIVEN IV FLUIDS PT HAD NO VOMITING OR DIARRHEA AT ANY TIME DURING ER STAY NO FEVER NO HYPOTENSION NO TACHYCARDIA NO SIGNS OF SEPSIS OR SIGNIFICANT INFECTION AT THIS TIME. URINE IS ESSENTIALLY CLEAR TODAY PT HAS REPEATEDLY TESTED NEGATIVE FOR OPIATES, DESPITE CLAIMING THAT SHE HAS BEEN TAKING HER OXYCODONE EVERY DAY AND CLAIMS SHE HAS NOT MISSED ANY DOSES PER [facility] AND MED RECONCILIATION, PT LAST FILLED RX OF OXYCODONE 10/325 FOR #60 ON 12/21/21 PT HAS RECEIVED A MULTITUDE OF PRESCRIPTIONS FROM A MULTITUDE OF DIFFERENT PROVIDERS. FILLED RX FOR ALPRAZOLAM 2 MG ER #60 ON 12/04/21 BY A DIFFERENT PROVIDER PER [facility], PT HAS RECEIVED RX'S FOR CONTROLLED SUBSTANCES FROM 26 DIFFERENT PROVIDERS, 7 DIFFERENT PHARMACIES ADDITIONALLY, PT HAS RECEIVED RX'S FOR FLAGYL 500 MG BID #14 ON 12/13/21 AND A GAIN ON 12/21/21 BY 2 DIFFERENT PROVIDERS IN [place]--ONE A HOSPICE/PALLIATIVE CARE PHYSICIAN, AND ONE AN RN TESTING PHYSICIAN. HAVE DISCUSSED WITH PT THAT HER SYMPTOMS COULD BE CAUSED BY OR WORSENED BY HER MARIJUANA USE, AND PT NOW ADMITS TO DAILY/REGULAR USE--( HAS PREVIOUSLY DENIED EVER USING MARIJUANA), DESPITE REPEATED + UDS FOR THC. ALSO DISCUSSED THAT HER UDS WAS AGAIN NEGATIVE FOR OPIATES TODAY, DESPITE HER CLAIM THAT SHE HAS BEEN TAKING HER OXYCODONE EVERY DAY--AND THAT THIS RAISES A RED FLAG FOR POSSIBLE DIVERSION. Diagnostic Imaging Comments CT ABDOMEN/PELVIS--PER RADIOLOGIST REPORT AT 2222 FINDINGS: Limited views of the lower thorax are unremarkable. The liver is normal without focal lesion. There is no biliary ductal dilation. Gallbladder is normal. Pancreas is normal. Spleen is normal. Adrenal glands are normal. The kidneys are normal. There is no hydronephrosis. Bladder is decompressed by a suprapubic catheter. Bowel is normal in caliber without obstruction or inflammation. There is a percutaneous gastric tube. No free fluid or air. No abdominal or pelvic lymphadenopathy. Aorta is normal in caliber without aneurysm. There are no suspicious osseus lesions. IMPRESSION: No acute abnormality in the abdomen or pelvis. Reviewed: Reviewed by Me Departure Impression Primary Impression: Abdominal pain Additional Impression: CHRONIC MARIJUANA USE Disposition: 01 HOME, SELF-CARE Condition: Stable Departure-Patient Inst. Referrals: NO,LOCAL PHYSICIAN (PCP/Family) Primary Care Physician Patient Instructions: Abdominal Pain, Adult ED, Marijuana Use and Addiction (DC) Add. Discharge Instructions: CONTINUE YOUR MEDICATIONS PRESCRIBED NO MARIJUANA FOLLOW UP WITH YOUR DOCTORS AT [facility] THIS WEEK FOR FURTHER CARE--CALL IN THE MORNING TO SCHEDULE APPOINTMENTS All discharge instructions reviewed with patient and/or family. Voiced understanding. Scripts Pantoprazole Sodium (Protonix) 40 Mg Tablet.dr 40 MG PO DAILY, #15 TAB Prov: ROM KIM DO 01/03/22 Ondansetron (Ondansetron Odt) 4 Mg Tab.rapdis 4 MG PO Q4H for Nausea/Vomiting, #10 TAB Prov: ROM KIM DO 01/03/22 Dicyclomine HCl (Dicyclomine HCl) 20 Mg Tablet 20 MG PO Q6H for Abdominal Pain, #20 TAB Prov: ROM KIM DO 01/03/22 ROM KIM DO Jan 03, 2022 20:12
[2022-01-03] MEDS ORDERED: LACTATED RINGERS 1,000 ML IV ONE (20:15)
[2022-01-03 20:16] LABS: BILIRUBIN,URINE NEGATIVE (NEGATIVE); CLARITY,URINE CLEAR; COLOR,URINE YELLOW; GLUCOSE, URINE (UA) NEGATIVE (NEGATIVE); KETONES,URINE NEGATIVE (NEGATIVE); LEUKOCYTE ESTERASE ,URINE TRACE (NEGATIVE); NITRITE,URINE NEGATIVE (NEGATIVE); PROTEIN,URINE NEGATIVE (NEGATIVE)
[2022-01-03 20:33] LABS: AMPHETAMINE SCREEN, URINE NEGATIVE (NEGATIVE); BACTERIA,URINE NEGATIVE /HPF; BARBITURATE SCREEN URINE NEGATIVE (NEGATIVE); BENZODIAZEPINES SCREEN URINE POSITIVE (NEGATIVE); CANNABINOID SCREEN, URINE POSITIVE (NEGATIVE); COCAINE SCREEN URINE NEGATIVE (NEGATIVE); METHADONE STAT NEGATIVE (NEGATIVE); METHAMPHETAMINE SCREEN URINE S NEGATIVE (NEGATIVE); OPIATE SCREEN URINE NEGATIVE (NEGATIVE); OXYCODONE STAT NEGATIVE (NEGATIVE); PROPOXYPHENE STAT NEGATIVE (NEGATIVE); RBC,URINE 0-2 /HPF; TRICYCLIC ANTIDEPRESSANTS SCRE NEGATIVE (NEGATIVE); WBC,URINE 0-2 /HPF
[2022-01-03 20:42] LABS: EOSINOPHILS % (AUTO) 3 % (0-10); MONOCYTES # (AUTO) 0.6 10^3/uL (0.0-1.0)
[2022-01-03 20:44] LABS: BASOPHILS # (AUTO) 0.1 10^3/uL (0.0-0.1); BASOPHILS % (AUTO) 1 % (0-10); EOSINOPHILS # (AUTO) 0.4 10^3/uL (0.0-0.3); HEMATOCRIT 42 % (35-52); HEMOGLOBIN 13.7 g/dL (11.5-16.0); LYMPHOCYTES # (AUTO) 5.2 10^3/uL (1.0-4.0); LYMPHOCYTES % (AUTO) 42 % (12-44); MEAN CORPUSCULAR HEMOGLOBIN 29 pg (25-34); MEAN CORPUSCULAR HGB CONC 33 g/dL (32-36); MEAN CORPUSCULAR VOLUME 87 fL (80-99); MEAN PLATELET VOLUME 10.1 fL (9.0-12.2); MONOCYTES % (AUTO) 5 % (0-12); NEUTROPHILS # (AUTO) 5.9 10^3/uL (1.8-7.8); NEUTROPHILS % (AUTO) 48 % (42-75); PLATELET COUNT 330 10^3/uL (130-400); WHITE BLOOD COUNT 12.2 10^3/uL (4.3-11.0)
[2022-01-03 20:56] LABS: CHLORIDE 104 MMOL/L (98-107); POTASSIUM 3.6 MMOL/L (3.6-5.0); SODIUM 136 MMOL/L (135-145)
[2022-01-03 20:57] LABS: ALBUMIN 4.3 GM/DL (3.2-4.5)
[2022-01-03 20:58] LABS: AMYLASE 88 U/L (25-125); CALCIUM 10.1 MG/DL (8.5-10.1)
[2022-01-03 20:59] LABS: GLUCOSE 84 MG/DL (70-105); TOTAL PROTEIN 8.1 GM/DL (6.4-8.2)
[2022-01-03 21:00] LABS: CARBON DIOXIDE 18 MMOL/L (21-32); PROTHROMBIN TIME PATIENT 13.1 SEC (12.2-14.7)
[2022-01-03 21:01] LABS: BILIRUBIN,TOTAL 0.3 MG/DL (0.1-1.0)
[2022-01-03 21:03] LABS: ALKALINE PHOSPHATASE 34 U/L (40-136); GFR ESTIMATED 125
[2022-01-03 21:04] LABS: BUN/CREATININE RATIO 21
[2022-01-03 21:06] LABS: ALANINE AMINOTRANSFERASE 16 U/L (0-55); MAGNESIUM 1.7 MG/DL (1.6-2.4)
[2022-01-03 21:07] LABS: LIPASE 21 U/L (8-78)
[2022-01-03 21:08] LABS: ERYTHROCYTE SEDIMENTATION RATE 15 MM/HR (0-20)
[2022-01-03 21:19] LABS: ACETAMINOPHEN < 10 UG/ML (10-30)
--- NOTE | 2022-01-03 22:09 | Diagnostic Imaging Report ---
EXAMINATION: CT abdomen and pelvis without contrast. TECHNIQUE: Multiple contiguous axial images were obtained through the abdomen and pelvis without the use of intravenous contrast. All CT scans use one or more of the following dose optimizing techniques: automated exposure control, MA and/or KvP adjustment based on patient size and exam type or iterative reconstruction. HISTORY: Abdominal pain. COMPARISON: 12/20/2021. FINDINGS: Limited views of the lower thorax are unremarkable. The liver is normal without focal lesion. There is no biliary ductal dilation. Gallbladder is normal. Pancreas is normal. Spleen is normal. Adrenal glands are normal. The kidneys are normal. There is no hydronephrosis. Bladder is decompressed by a suprapubic catheter. Bowel is normal in caliber without obstruction or inflammation. There is a percutaneous gastric tube. No free fluid or air. No abdominal or pelvic lymphadenopathy. Aorta is normal in caliber without aneurysm. There are no suspicious osseus lesions. IMPRESSION: No acute abnormality in the abdomen or pelvis. Dictated by: Dictated on workstation # [id number]
[2022-01-03] MEDS ORDERED: ONDA4TAB11 PO (22:25)
[2022-01-03] MEDS ORDERED: DICY20TA PO (22:25)
[2022-01-03] MEDS ORDERED: PANT40TA2 PO (22:26)
[2022-01-03 22:35] VITALS: BP 109/74
== END 2022-01-03 22:39 | disposition home or self-care (01) ==
LOC: EDUNIT# 19:27 → ER 19:28
DX: R10.84 Generalized abdominal pain (principal); F12.90 Cannabis use, unspecified, uncomplicated
CPT/HCPCS: 74176; 80053; 80306; 81000; 82150; 83605; 83690; 83735; 83874; 84703; 85025; 85610; 85652; 85730; 86141; 87040; 87088; 93041; 99284; G0480 ×2; 36415; 80320; 80329; 87077; 96360